=== PATIENT | female | born 2000 | race Native Hawaiian/Other Pacific Islander ===

== ENCOUNTER 2020-08-26 16:48 | Emergency (ER) | payer OTHER, SELFPAY ==
[2020-08-26 17:04] VITALS: BP 115/78; PULSE 90; RESP 18; TEMP 36.7
[2020-08-26 17:17] VITALS: BP 140/78; PULSE 102; RESP 18; TEMP 36.8; O2SAT 100; BMI 27.1
--- NOTE | 2020-08-26 17:46 | ED.URI ---
HPI - URI/Sore Throat General Chief Complaint: Upper Respiratory Symptoms <QI Akins - Last Filed: 08/26/20 20:15> Stated Complaint: COVID SYMPTOMS <QI Akins - Last Filed: 08/26/20 20:15> Time Seen by Provider: 08/26/20 17:45 <QI Akins - Last Filed: 08/26/20 20:15> Source: patient <QI Akins Last Filed: 08/26/20 20:15> Mode of arrival: ambulatory <QI Akins Last Filed: 08/26/20 20:15> Limitations: no limitations <QI Akins Last Filed: 08/26/20 20:15> History of Present Illness HPI Narrative: 20 yo female presenting with mild sore throat, congestion, runny nose. She was recently treated for Strep throat and throat is feeling better. She had recent exposure to a co-worker who was exposed to a person positive for COVID. She was referred to ER for evaluation. <QI Akins - Last Filed: 08/26/20 20:15> MD elicited complaint: cough, sore throat, rhinorrhea and nasal congestion <QI Akins Last Filed: 08/26/20 20:15> Onset (ago): day(s) <QI Akins - Last Filed: 08/26/20 20:15> Consistency: intermittent <QI Akins Last Filed: 08/26/20 20:15> Severity: mild <QI Akins Last Filed: 08/26/20 20:15> Description of mucous: clear and watery <QI Akins Last Filed: 08/26/20 20:15> Able to tolerate fluids by mouth: Yes <QI Akins Last Filed: 08/26/20 20:15> Exacerbating factors: nothing <QI Akins Last Filed: 08/26/20 20:15> Relieving factors: OTC cold medicine <QI Akins Last Filed: 08/26/20 20:15> Context: sick contacts <QI Akins Last Filed: 08/26/20 20:15> Associated symptoms: denies other symptoms <QI Akins Last Filed: 08/26/20 20:15> Treatments prior to arrival: none <QI Akins Last Filed: 08/26/20 20:15> Related Data Home Medications: Previous Rx's Medication Instructions Recorded amoxicillin-pot clavulanate 1 tab PO Q12H #14 tab NS 08/26/20 [Augmentin XR] <QI Akins Last Filed: 08/26/20 20:15> Allergies/Adverse Reactions: Allergies Allergy/AdvReac Type Severity Reaction Status Date / Time pineapple [PINEAPPLE] Allergy Unknown TONGUE/THROAT Unverified 08/17/20 08:23 SWELLING No Known Allergies Allergy Unverified 08/11/20 17:05 [No Known Allergies*] Pinapples Allergy Unknown Uncoded 07/01/20 00:00 <QI Akins Last Filed: 08/26/20 20:15> Review of Systems Review of Systems: Constitutional: No Fever, No Chills ENT/Mouth: No sore throat, No Rhinorrhea, No Swallowing Difficulty Eyes: No Eye Pain, No Swelling, No Redness Cardiovascular: No Chest Pain or SOB, No Orthopnea or Edema Respiratory: No Cough, No Sputum, No Wheezing or dyspnea Gastrointestinal: No Nausea, No Vomiting, No Diarrhea, No abdominal Pain, No Hematochezia, No Melena Genitourinary: No Dysuria, No Urinary Frequency, No Hematuria Musculoskeletal: No joint pain, No Myalgias Skin: No Skin Lesions, No rash Neuro: No Weakness, No Numbness, No Dizziness, No Headache Psych: No Anxiety/Panic, No Depression Heme/Lymph: No Bruising, No Lymphadenopathy Endocrine: No Polyuria, No Polydipsia All other 10 point ROS are negative. <QI Akins Last Filed: 08/26/20 20:15> PMF Past Medical History Attestation statement: The following information was validated with the patient. <QI Akins Last Filed: 08/26/20 20:15> Medical History: Medical History (Updated 08/27/20 @ 00:01 by Background Daspenser) No known health problems <QI Akins - Last Filed: 08/26/20 20:15> Social History Social History: Social History Smoked in Last 30 Days: No Use of substances other than those prescribed or required for medical reasons: No Advance Directives: No Advance Directives Information Provided: No <QI Akins - Last Filed: 08/26/20 20:15> Physical Exam Vital Signs and I&O and Narrative: Vital Signs and I&O: Vital Signs Temp 98.3 F 08/26/20 17:17 Pulse 102 H 08/26/20 17:17 Resp 18 08/26/20 17:17 BP 140/78 H 08/26/20 17:17 Pulse Ox 100 08/26/20 17:17 Intake & Output 08/26/20 08/26/20 08/27/20 06:59 18:59 06:59 Weight 71.668 kg Body Mass Index 27.1 Appearance: Alert. Oriented X3. No acute distress. Eyes: Pupils equal, round and reactive to light. ENT: bilateral tonsil swelling with exudates, no signs of abscess. handling secretions normally, normal voice Neck: Normal inspection. Neck supple. CVS: Normal heart rate and rhythm. Pulses normal. Respiratory: No respiratory distress. Breath sounds normal. Abdomen: Soft and nontender. Skin: Skin warm and dry. Normal skin color. Normal skin turgor. Extremities: No lower extremity edema. No lower extremity edema. Neuro: Oriented X 3. No motor deficit. No sensory deficit. <QI Akins - Last Filed: 08/26/20 20:15> Vital Signs and I&O: Vital Signs Temp 98.3 F 08/26/20 17:17 Pulse 102 H 08/26/20 17:17 Resp 18 08/26/20 17:17 BP 140/78 H 08/26/20 17:17 Pulse Ox 100 08/26/20 17:17 Intake & Output 08/26/20 08/26/20 08/27/20 06:59 18:59 06:59 Weight 71.668 kg Body Mass Index 27.1 <Christiano Carrillo DO - Last Filed: 08/27/20 02:23> Course Course Hospital Course: will COVID and strep test. patient appears well. non-toxic. stable for d/c. will continue abx for strep pharyngitis given exam findings <QI Akins - Last Filed: 08/26/20 20:15> MDM - URI/Sore Throat Differential Diagnosis Differential diagnosis: Likely upper respiratory infection, sinusitis, viral infection, bronchitis, influenza and pharyngitis <QI Akins - Last Filed: 08/26/20 20:15> Medical Records Attestation: I reviewed the patient's medical records. <QI Akins - Last Filed: 08/26/20 20:15> Discharge Plan Discharge Clinical Impression: Pharyngitis, Upper respiratory infection <QI Akins Last Filed: 08/26/20 20:15> Patient Disposition: Home, Self-Care <QI Akins - Last Filed: 08/26/20 20:15> Instructions: Pharyngitis (ED) <QI Akins Last Filed: 08/26/20 20:15> Additional Instructions: You were tested for COVID-19 today. We will call you with the results in 2-4 days. <QI Akins - Last Filed: 08/26/20 20:15> Prescriptions: New amoxicillin-pot clavulanate [Augmentin XR] 1,000-62.5 mg tablet extended release 12 hr 1 tab PO Q12H Qty: 14 RF: 0 <QI Akins Last Filed: 08/26/20 20:15> Stand Alone Forms: Work/School Release <QI Akins - Last Filed: 08/26/20 20:15> Interventions: ED Discharge Assessment Last Done: 08/26/20 18:28 <QI Akins Last Filed: 08/26/20 20:15> Discharge Date/Time: 08/26/20 18:31 <QI Akins Last Filed: 08/26/20 20:15>
== END 2020-08-26 18:31 | disposition home or self-care (01) ==
DX: J06.9 Acute upper respiratory infection, unspecified (principal); Z20.828 Contact with and (suspected) exposure to other viral communicable diseases
CPT/HCPCS: 36415; 87071; 87635; 99283; 99284

== ENCOUNTER 2020-08-30 06:55 | Outpatient (REF) | payer OTHER, SELFPAY ==
[2020-08-30 08:10] LABS: COVID-19 Test Negative (Negative)
== END 2020-08-30 06:56 | disposition home or self-care (01) ==
LOC: HO.LAB 06:55
PROVIDERS: Visit Provider Internal Medicine
DX: Z20.828 Contact with and (suspected) exposure to other viral communicable diseases (principal)
CPT/HCPCS: 36415; 87635

== ENCOUNTER 2020-12-15 08:33 | Outpatient (REF) | payer OTHER, SELFPAY | END 2020-12-15 08:34 | disposition home or self-care (01) | LOC: HO.LAB 08:33 | PROVIDERS: Visit Provider Internal Medicine | DX: Z20.822 Contact with and (suspected) exposure to COVID-19 (principal) | CPT/HCPCS: 36415; C9803; U0003 ==

== ENCOUNTER 2021-01-19 09:31 | Outpatient (REF) | payer OTHER, SELFPAY | END 2021-01-19 09:32 | disposition home or self-care (01) | LOC: HO.LAB 09:31 | PROVIDERS: Visit Provider Internal Medicine | DX: Z20.822 Contact with and (suspected) exposure to COVID-19 (principal) | CPT/HCPCS: 36415; C9803; U0003; U0005 ==

== ENCOUNTER 2025-01-19 07:45 | Emergency (ER) | payer OTHER, SELFPAY ==
--- NOTE | ~2025-01-19 | CT_ITS ---
EXAMINATION: CT ABDOMEN AND PELVIS WITH CONTRAST CLINICAL INFORMATION: Lower abdominal pain. COMPARISON: CT dated July 09, 2020 TECHNIQUE: Multidetector volumetric images were obtained from the superior aspect of the liver through the pubic symphysis following administration 85 mL of Omnipaque 350 intravenous contrast. Sagittal and coronal reformatted images were obtained on the technologist's workstation. Oral contrast: No This CT examination was performed using dose optimization techniques as appropriate, variously including the following: *Automated exposure control *Adjustment of mA and/or kV according to patient size (this includes techniques or standardized protocols for targeted exams where dose is matched to indication/reason for exam; i.e. extremities or head) *Use of iterative reconstruction technique. DLP: 391 mGy centimeter. FINDINGS: LUNG BASES: No acute airspace disease or discrete pulmonary nodules. LIVER, GALLBLADDER, AND BILIARY TREE: Liver measures 19 cm. There is a trace of edema in the portal triad. Portal veins and hepatic veins are patent. Intrahepatic portion of the IVC is patent. No pericholecystic fluid collection or gallbladder wall thickening. Common bile duct measures 4 mm. PANCREAS: No focal mass. No peripancreatic fluid collection. No main pancreatic ductal dilatation. SPLEEN: 12 cm. ADRENAL GLANDS: No nodular lesions. KIDNEYS AND URETERS: No hydronephrosis. No gross renal mass. Normal enhancement pattern of the parenchyma. BLADDER: Fluid-filled. GASTROINTESTINAL TRACT: Abundant stool large intestine. Collapsed appearance of the rectosigmoid colon. No intestinal obstruction pattern. Appendix is normal. No pneumatosis intestinalis. No ascites. No pneumoperitoneum. No peripheral enhancing fluid collections in the peritoneal cavity. ABDOMINAL WALL: No gross umbilical hernia. LYMPH NODES: Nonspecific prominent mesenteric lymph nodes. VASCULAR: No aneurysm or dissection, abdominal aorta. PELVIC VISCERA: T-shaped contraceptive device within the uterine cavity. OSSEOUS STRUCTURES: No acute fracture or listhesis. No lytic or blastic lesions. CT/CT abdomen pelvis w IV con IMPRESSION: Hepatosplenomegaly. A lymphoproliferative disorder cannot be excluded. Fleischner guidelines were followed. Electronically signed by: Alexis Krishnamurthy MD 01/19/2025 09:51 AM [facility]
[2025-01-19 08:04] VITALS: BP 131/76; PULSE 88; RESP 18; TEMP 36.6; O2SAT 100; BMI 22.3
--- NOTE | 2025-01-19 08:28 | ED.ABDPAIN ---
HPI - Abdominal Pain General Chief Complaint: Abdominal Pain Stated Complaint: abd pain, blood in stool Time Seen by Provider: 01/19/25 08:14 Source: patient Mode of arrival: ambulatory Limitations: no limitations History of Present Illness HPI narrative: THIS IS A 24 YEARS OLD THE PATIENT PRESENTED TO THE EMERGENCY DEPARTMENT WITH A CHIEF COMPLAINT OF LOWER ABDOMINAL PAIN PAIN HE HAS BEEN ONGOING FOR ABOUT 4 DAYS LOCALIZED IN THE LOWER ABDOMEN MORE IN THE RIGHT SIDE SHE HAS ALSO DIARRHEA NAUSEA VOMITING MD elicited complaint: abdominal pain Pertinent past history: none Onset (ago): day(s) (4) Pain Consistency: constant Location: RLQ and LLQ Severity: moderate Quality: cramping Radiation: none Migration to: no migration Exacerbating factors: nothing Relieving factors: nothing Related Data Previous Rx's ?Medication ?Instructions ?Recorded Augmentin XR 1,000 mg-62.5 mg 1 tab PO Q12H #14 tabs 08/26/20 tablet,extended release (amoxicillin-pot clavulanate) oxycodone 5 mg tablet 5 mg PO Q6H PRN pain #15 tabs 01/19/25 Allergies Allergy/AdvReac Type Severity Reaction Status Date / Time pineapple [PINEAPPLE] Allergy Unknown TONGUE/THROAT Verified 01/19/25 08:07 SWELLING No Known Allergies Allergy Verified 01/19/25 08:07 [No Known Allergies*] Pinapples Allergy Unknown Swelling Uncoded 01/19/25 08:07 Review of Systems Eyes: Reports no additional eye complaints Cardiovascular: Reports no additional cardiovascular complaints Gastrointestinal: Reports no additional gastrointestinal complaints, Reports nausea and Reports vomiting PMFSH Past Medical History PMFSH Narrative: DENIES Medical History No known health problems Social History Social History Alcohol intake: current Alcohol intake frequency: holidays/special occasions only Physical Exam ED Vital Signs: Vital Signs - 24 hr 01/19/25 08:04 01/19/25 09:28 01/19/25 10:00 Temperature 98 F 98.3 F 98.4 F Pulse Rate 88 76 69 Respiratory Rate 18 16 16 Blood Pressure 131/76 102/62 102/61 Pulse Oximetry 100 100 100 Oxygen Delivery Method Room Air Room Air Room Air 01/19/25 10:58 01/19/25 10:59 Temperature 98.4 F 98.4 F Pulse Rate 81 81 Respiratory Rate 16 16 Blood Pressure 98/55 L 98/55 L Pulse Oximetry 100 100 Oxygen Delivery Method Room Air Room Air BMI result Body Mass Index 22.3 NO ACUTE DISTRESS LOOKS WELL Const General: cooperative Nutritional Appearance: well nourished Orientation/consciousness: patient oriented x3 HENMT Head: Yes normal to inspection Mouth: Normal oral and palatal mucosa present Neck Neck: Yes normal visual inspection Chest Chest palpation & inspection: normal inspection of the chest Resp Effort & Inspection: normal respiratory effort Auscultation: clear to auscultation bilaterally Cardio Jugular venous distension: no JVD Rate: regular rate Rhythm: regular rhythm GI Inspection: Yes normal to inspection Palpation (GI): Soft to palpation, Tenderness to palpation present (GI) in the RLQ and in the LUQ and no guarding Skin General skin exam: no rashes or lesions noted Neuro General: patient oriented x3 Course Reevaluation(s) Reevaluation #1: DOING BETTER LABS WITHIN NORMAL LIMITS, CT NO BOWEL PATHOLOGY, HEPATOSPLENOMEGALY, UA NOTED BY SHE HAS EPITHELIAL CELLS AND NO SYMPTOMS OF URINARY TRACT INFECTION , WE WILL WAIT FOR CULTURES Time: 10:29 Medical Decision Making Medical Decision Making MDM Narrative: PATIENT IS HERE WITH A LOWER ABDOMINAL PAIN WE WILL OBTAIN LABS IMAGING AND REASSESS Differential Diagnosis Differential Diagnoses: The differential diagnosis associated with the presentation includes Admission/Observation Consideration of admission/observation: Escalation of care including admission/observation considered Lab Data [facility] Lab Attestation statement: I reviewed the patient's lab results. 01/19/25 08:28 01/19/25 08:28 Labs: Lab Results 01/19/25 01/19/25 01/19/25 Range/Units 08:28 08:28 08:28 WBC 7.7 (4.8-10.8) X10*3/uL RBC 4.71 (4.20-5.50) X10*6/uL Hgb 12.2 (12.0-16.0) g/dl Hct 38.0 (37.0-47.0) % MCV 80.7 (80.0-98.0) fL MCH 25.9 L (27.0-33.0) pg MCHC 32.1 (31.0-35.0) g/dl RDW 12.7 (11.0-16.0) % Plt Count 150 L (160-400) X10*3/uL MPV 9.8 (9.4-12.3) fL Immature Gran % (Auto) 0.4 (0.0-0.4) % Neut % (Auto) 81.5 H (45-73) % Lymph % (Auto) 10.6 L (20-40) % [place] % (Auto) 5.8 (2-11) % Eos % (Auto) 1.3 (0-4) % Baso % (Auto) 0.4 (0-2) % Lymph # (Auto) 0.8 L (1.2-4.9) X10*3/uL [place] # (Auto) 0.5 (0.1-1.2) X10*3/uL Eos # (Auto) 0.1 (0.0-0.4) X10*3/uL Baso # (Auto) 0.0 (0.0-0.2) X10*3/uL Abs Immat Gran (auto) 0.03 (0.00-0.03) X10*3/uL Absolute Neuts (auto) 6.3 (2.0-8.3) x10*3/uL Absolute Nucleated RBC 0.000 (0.0-0.012) X10*3/uL Nucleated RBC % (auto) 0.0 (0.0-0.2) /100WBC Sodium 141 (135-145) mmol/L Potassium 3.4 (3.3-5.1) mmol/L Chloride 111 H (96-108) mmol/L Carbon Dioxide 24 (22-29) mmol/L Anion Gap 9 L (12-20) BUN 8 L (9-16) mg/dL Creatinine 0.73 (0.5-1.4) mg/dL Estim Creat Clear Calc 100.8 Estimated GFR > 60 Random Glucose 98 (60-115) mg/dL Calcium 9.0 (8.4-10.2) mg/dL Magnesium 1.9 (1.6-2.6) mg/dL Total Bilirubin 1.3 H 1.3 H (0.0-1.0) mg/dL Direct Bilirubin 0.3 (0.0-0.5) mg/dL AST 20 20 (5-31) U/L ALT 15 (0-31) U/L Alkaline Phosphatase (39-117) U/L Total Protein (6.5-8.0) g/dL Albumin (3.5-5.0) g/dL Lipase (8-78) U/L Beta HCG, Quant mIU/mL Urine Color Urine Appearance Urine pH (5.0-9.0) Ur Specific [place] (1.005-1.025) Urine Protein (Neg-Trace) mg/dL Urine Glucose (UA) (Negative) mg/dL Urine Ketones (Negative) mg/dL Urine Blood (Negative) Urine Nitrite (Negative) Ur Leukocyte Esterase (Negative) Urine RBC (0-2) /HPF Urine WBC (0-5) /HPF Ur Squamous Epith Cells (0-2) /HPF Urine Bacteria (None Seen) Hyaline Casts (0-2) /LPF Urine Test (NEGATIVE) 01/19/25 01/19/25 01/19/25 Range/Units 08:28 08:28 08:28 WBC (4.8-10.8) X10*3/uL RBC (4.20-5.50) X10*6/uL Hgb (12.0-16.0) g/dl Hct (37.0-47.0) % MCV (80.0-98.0) fL MCH (27.0-33.0) pg MCHC (31.0-35.0) g/dl RDW (11.0-16.0) % Plt Count (160-400) X10*3/uL MPV (9.4-12.3) fL Immature Gran % (Auto) (0.0-0.4) % Neut % (Auto) (45-73) % Lymph % (Auto) (20-40) % [place] % (Auto) (2-11) % Eos % (Auto) (0-4) % Baso % (Auto) (0-2) % Lymph # (Auto) (1.2-4.9) X10*3/uL [place] # (Auto) (0.1-1.2) X10*3/uL Eos # (Auto) (0.0-0.4) X10*3/uL Baso # (Auto) (0.0-0.2) X10*3/uL Abs Immat Gran (auto) (0.00-0.03) X10*3/uL Absolute Neuts (auto) (2.0-8.3) x10*3/uL Absolute Nucleated RBC (0.0-0.012) X10*3/uL Nucleated RBC % (auto) (0.0-0.2) /100WBC Sodium (135-145) mmol/L Potassium (3.3-5.1) mmol/L Chloride (96-108) mmol/L Carbon Dioxide (22-29) mmol/L Anion Gap (12-20) BUN (9-16) mg/dL Creatinine (0.5-1.4) mg/dL Estim Creat Clear Calc Estimated GFR Random Glucose (60-115) mg/dL Calcium (8.4-10.2) mg/dL Magnesium (1.6-2.6) mg/dL Total Bilirubin (0.0-1.0) mg/dL Direct Bilirubin (0.0-0.5) mg/dL AST (5-31) U/L ALT 18 (0-31) U/L Alkaline Phosphatase 62 61 (39-117) U/L Total Protein 7.3 7.2 (6.5-8.0) g/dL Albumin 4.3 (3.5-5.0) g/dL Lipase (8-78) U/L Beta HCG, Quant mIU/mL Urine Color Urine Appearance Urine pH (5.0-9.0) Ur Specific [place] (1.005-1.025) Urine Protein (Neg-Trace) mg/dL Urine Glucose (UA) (Negative) mg/dL Urine Ketones (Negative) mg/dL Urine Blood (Negative) Urine Nitrite (Negative) Ur Leukocyte Esterase (Negative) Urine RBC (0-2) /HPF Urine WBC (0-5) /HPF Ur Squamous Epith Cells (0-2) /HPF Urine Bacteria (None Seen) Hyaline Casts (0-2) /LPF Urine Test (NEGATIVE) 01/19/25 01/19/25 01/19/25 Range/Units 08:28 09:28 09:29 WBC (4.8-10.8) X10*3/uL RBC (4.20-5.50) X10*6/uL Hgb (12.0-16.0) g/dl Hct (37.0-47.0) % MCV (80.0-98.0) fL MCH (27.0-33.0) pg MCHC (31.0-35.0) g/dl RDW (11.0-16.0) % Plt Count (160-400) X10*3/uL MPV (9.4-12.3) fL Immature Gran % (Auto) (0.0-0.4) % Neut % (Auto) (45-73) % Lymph % (Auto) (20-40) % [place] % (Auto) (2-11) % Eos % (Auto) (0-4) % Baso % (Auto) (0-2) % Lymph # (Auto) (1.2-4.9) X10*3/uL [place] # (Auto) (0.1-1.2) X10*3/uL Eos # (Auto) (0.0-0.4) X10*3/uL Baso # (Auto) (0.0-0.2) X10*3/uL Abs Immat Gran (auto) (0.00-0.03) X10*3/uL Absolute Neuts (auto) (2.0-8.3) x10*3/uL Absolute Nucleated RBC (0.0-0.012) X10*3/uL Nucleated RBC % (auto) (0.0-0.2) /100WBC Sodium (135-145) mmol/L Potassium (3.3-5.1) mmol/L Chloride (96-108) mmol/L Carbon Dioxide (22-29) mmol/L Anion Gap (12-20) BUN (9-16) mg/dL Creatinine (0.5-1.4) mg/dL Estim Creat Clear Calc Estimated GFR Random Glucose (60-115) mg/dL Calcium (8.4-10.2) mg/dL Magnesium (1.6-2.6) mg/dL Total Bilirubin (0.0-1.0) mg/dL Direct Bilirubin (0.0-0.5) mg/dL AST (5-31) U/L ALT (0-31) U/L Alkaline Phosphatase (39-117) U/L Total Protein (6.5-8.0) g/dL Albumin 4.2 (3.5-5.0) g/dL Lipase 10 (8-78) U/L Beta HCG, Quant < 2 mIU/mL Urine Color Yellow Urine Appearance Cloudy Urine pH 5.5 (5.0-9.0) Ur Specific [place] 1.020 (1.005-1.025) Urine Protein Negative (Neg-Trace) mg/dL Urine Glucose (UA) Negative (Negative) mg/dL Urine Ketones Negative (Negative) mg/dL Urine Blood Trace H (Negative) Urine Nitrite Negative (Negative) Ur Leukocyte Esterase Moderate (2+) H (Negative) Urine RBC 0-2 (0-2) /HPF Urine WBC 21-50 H (0-5) /HPF Ur Squamous Epith Cells >20 (0-2) /HPF Urine Bacteria 4+ (None Seen) Hyaline Casts 0-2 (0-2) /LPF Urine Test NEGATIVE (NEGATIVE) Medications Administered Discontinued Medications Generic Name Dose Route Start Last Admin Trade Name Freq PRN Reason Stop Dose Admin Sodium Chloride 1,000 mls @ 999 mls/hr 01/19/25 08:30 01/19/25 09:38 Ns IVCONT 01/19/25 09:30 Infused .Q1H1M KIMBERLI Infusion Iohexol 100 ml 01/19/25 09:20 01/19/25 09:21 Iohexol 350 Mg/Ml 100 Ml Infus..Btl IV 01/19/25 09:21 85 ml ONCE ONE Administration Morphine Sulfate 4 mg 01/19/25 08:27 01/19/25 08:30 Morphine Sulfate 4 Mg/Ml Cartridge IVPUSH 01/19/25 08:28 4 mg ONCE ONE Administration Protocol Ondansetron HCl 4 mg 01/19/25 08:27 01/19/25 08:30 Ondansetron Hcl 4 Mg/2 Ml Vial IVPUSH 01/19/25 08:28 4 mg ONCE ONE Administration Discharge Plan Discharge Clinical Impression: Abdominal pain Qualifiers: Abdominal location: lower abdomen, unspecified Qualified Code(s): R10.30 - Lower abdominal pain, unspecified Patient Disposition: Home, Self-Care Instructions: Abdominal Pain (ED) Additional Instructions: FOLLOW-UP WITH YOUR PRIMARY CARE PHYSICIAN CALL AND MAKE AN APPOINTMENT, YOUR BLOOD WORK WAS NORMAL, YOUR CT SCAN OF THE ABDOMEN AND PELVIS SHOWED NO BOWEL PATHOLOGY NO APPENDICITIS NO DIVERTICULITIS NO BLOCKAGE, RADIOLOGY COMMENT THAT YOU SPLEEN IS MILDLY ENLARGED PLEASE FOLLOW-UP WITH YOUR PRIMARY CARE PHYSICIAN. We sent a prescription for you for pain medicine to [facility] in [facility] Prescriptions: New oxycodone 5 mg tablet 5 mg PO Q6H PRN (Reason: pain) Qty: 15 0RF Rx Instructions: partial filing upon pt request; Partial Fill upon patient request. No Action amoxicillin-pot clavulanate [Augmentin XR] 1,000-62.5 mg tablet extended release 12 hr 1 tab PO Q12H Qty: 14 0RF Referrals: Iris Hughes MD [Primary Care Provider] - 2 days Stand Alone Forms: Work/School Release Interventions: ED Discharge Assessment Last Done: 01/19/25 10:59 Discharge Date/Time: 01/19/25 10:59 Print Language: Yemeni
[2025-01-19] MEDS: Morphine Sulfate 4 MG/ML CARTRIDGE IVPUSH (08:30)
[2025-01-19] MEDS: ondansetron HCL 4 MG/2 ML VIAL IVPUSH (08:30)
[2025-01-19 08:32] LABS: MANUAL DIFF FLAG NO
[2025-01-19 08:33] LABS: Basophils Percent Auto 0.4 % (0-2); Eosinophils Absolute Auto 0.1 X10*3/uL (0.0-0.4); Eosinophils Percent Auto 1.3 % (0-4); Hemoglobin 12.2 g/dl (12.0-16.0); Imm Gran Abs Auto 0.03 X10*3/uL (0.00-0.03); Imm Gran Pct Auto 0.4 % (0.0-0.4); Lymphocytes Absolute Auto 0.8 X10*3/uL (1.2-4.9); Lymphocytes Percent Auto 10.6 % (20-40); Mean Corpuscular HGB Conc 32.1 g/dl (31.0-35.0); Mean Corpuscular Hemoglobin 25.9 pg (27.0-33.0); Mean Corpuscular Volume 80.7 fL (80.0-98.0); Mean Platelet Volume 9.8 fL (9.4-12.3); Monocytes Absolute Auto 0.5 X10*3/uL (0.1-1.2); Monocytes Percent Auto 5.8 % (2-11); Neutrophils Absolute Auto 6.3 x10*3/uL (2.0-8.3); Neutrophils Percent Auto 81.5 % (45-73); Platelet Count 150 X10*3/uL (160-400); Red Blood Count 4.71 X10*6/uL (4.20-5.50); Red Cell Distribution Width 12.7 % (11.0-16.0); White Blood Count 7.7 X10*3/uL (4.8-10.8)
[2025-01-19] MEDS: 0.9 % Sodium Chloride 1,000 ML 999 ML IVCONT (08:33)
--- OUTSIDE RECORDS SUMMARY | 2025-01-19 08:41 | XMS_ITS | Clinical Summary ---
Author Organization [facility] ity Address [address] [place] [address] Care Team Providers Care Digital Assistant Name Role Phone Trice Bradford MD Primary Care Provider [phone] Social History Tobacco Use Types Packs/Day Years Used Date Smoking Tobacco: Never Smokeless Tobacco: Never Alcohol Use Standard Drinks/Week Comments Yes 0 (1 standard drink = 0.6 oz pur e alcohol) Comments Unknown Sex and Gender Information Value Date Recorded Sex Assigned at Not on file Legal Sex Female 1:07 PM EST Gender Identity Not on file Sexual Orientation Not on file Obstetrics History Plan of Treatment Health Maintenance Due Date Last Done Comments HPV Vaccines (1 - 3-dose series) 2013 DTaP,Tdap,and Td Vaccines (1 - Tdap) 2017 Hepatitis B Vaccines (1 of 3 - 19+ 3-dose series) 2017 Cervical Cancer Screening: P ap Smear 2019 COVID-19 Vaccine ( - 2023-2 5 season) 2024 Influenza Vaccine (#1) 2024 HIB Vaccines Aged Out No longer eligi ble based on patient's age to complete this topic Hepatitis A Vaccines Aged Out No long er eligible based on patient's age to complete this topic IPV Vaccines Aged Out No longer eligi ble based on patient's age to complete this topic MMR Vaccines Aged Out No longer eligi ble based on patient's age to complete this topic Meningococcal ACWY Vaccine Aged Out N o longer eligible based on patient's age to complete this topic Meningococcal B Vacine Aged Out No lo nger eligible based on patient's age to complete this topic Pneumococcal Vaccine: Pediat rics (0 to 5 Years) and At-Risk Patients (6 to 64 Years) Aged Out No longer eligible b ased on patient's age to complete this topic RSV Immunization Patients Un alida 20 months Aged Out No longer eligible b ased on patient's age to complete this topic Varicella Vaccines Aged Out No longer eligible based on patient's age to complete this topic Care Teams Digital Assistant Relationship Specialty Start Date End Date Trice Bradford MD [address] [facility] [place] [id number] PCP - General Pediatrics 12/01/17
--- OUTSIDE RECORDS SUMMARY | 2025-01-19 08:41 | XMS_ITS | Clinical Summary ---
Author Organization [facility] Address [address] [place] [address] Care Team Providers Care School Traffic Guard Name Role Phone Trice Bradford MD Primary Care Provider [phone] Allergies No known active allergies Medications Medication Sig Dispensed Refills Start Date End Date Status naproxen (NAPROSYN) 500 MG tablet Take 1 tablet (500 mg total) by mouth 2 (two) times a day with meals. 20 tablet 0 08/28/2018 Active ibuprofen (ADVIL,MOTRIN) 400 MG tablet Take 1 tablet (400 mg total) by mouth every 8 (eight) hours as needed for pain. 30 tablet 0 12/05/2018 Active Social History Tobacco Use Types Packs/Day Years Used Date Smoking Tobacco: Never Smokeless Tobacco: Never Alcohol Use Standard Drinks/Week Comments Yes 0 (1 standard drink = 0.6 oz pur e alcohol) occasionally Sex and Gender Information Value Date Recorded Sex Assigned at Female 12/05/2018 12:53 AM EST Gender Identity Not on file Sexual Orientation Not on file Last Filed Vital Signs Vital Sign Reading Time Taken Comments Blood Pressure 112/71 12/05/2018 3:35 AM EST Pulse 94 12/05/2018 3:35 AM EST Temperature 37.1 ??C (98.8 ??F) 12/05/2018 3:35 AM ES T Respiratory Rate 16 12/05/2018 3:35 AM EST Oxygen Saturation 100% 12/05/2018 3:35 AM EST Inhaled Oxygen Concentration - - Weight 62.6 kg (138 lb) 08/28/2018 4:50 PM EDT Height 162.6 cm (5' 4 ) 08/28/2018 4:50 PM EDT Body Mass Index 23.69 08/28/2018 4:50 PM EDT Plan of Treatment Health Maintenance Due Date Last Done Comments Hepatitis B Vaccines (1 of 3 - 3-dose series) 1998 Hepatitis C Screening 1998 COVID-19 Vaccine (#1) 1998 Depression Screening 2010 Preventative Health Evaluation 01/26/2016 DTap / Tdap / Td (1 - Tdap) 2017 Cervical Cancer Screening (P ap Smear) 2019 Influenza Vaccine (#1) 2024 Pneumococcal Vaccine Aged Out No long er eligible based on patient's age to complete this topic RSV Ped < 20 months Aged Out No longe r eligible based on patient's age to complete this topic Care Teams School Traffic Guard Relationship Specialty Start Date End Date Trice Bradford MD [address] [place] [address] [place] [id number] PCP - General Pediatrics 12/01/17
--- OUTSIDE RECORDS SUMMARY | 2025-01-19 08:41 | XMS_ITS | Clinical Summary ---
Author Organization [facility] Address [address] [place] [address] Care Team Providers Care Public Relations Professional Name Role Phone Pcp, No Primary Care Provider Unavailabl e Allergies No known active allergies Medications No known medications Social History Tobacco Use Types Packs/Day Years Used Date Smoking Tobacco: Never Smokeless Tobacco: Never Sex and Gender Information Value Date Recorded Sex Assigned at Not on file Gender Identity Not on file Sexual Orientation Not on file Last Filed Vital Signs Vital Sign Reading Time Taken Comments Blood Pressure 109/74 08/06/2018 3:38 PM EDT Pulse 90 08/06/2018 3:38 PM EDT Temperature 37.4 ??C (99.3 ??F) 08/06/2018 3:38 PM ED T Respiratory Rate - - Oxygen Saturation 100% 08/06/2018 3:38 PM EDT Inhaled Oxygen Concentration - - Weight - - Height - - Body Mass Index - - Plan of Treatment Health Maintenance Due Date Last Done Comments Hepatitis C Virus Screening 1998 HIV Screening 2011 HPV Vaccines (1 - 3-dose series) 2013 DTaP/Tdap/Td Vaccines (1 - Tdap) 2017 Hepatitis B Vaccines (1 of 3 - 19+ 3-dose series) 2017 Pap Smear (Ages 21-65) 2019 Influenza Vaccine 06/25/2024 COVID-19 Vaccine ( - 2023-2 5 season) 2024 Pneumococcal Vaccine: Pediat saloni (0-5 Years) and At-Risk Patients (6 to 49 Years) Aged Out No longer eligible b ased on patient's age to complete this topic Care Teams Public Relations Professional Relationship Specialty Start Date End Date Pcp, No PCP - General General Medicine 08/06/18
[2025-01-19 08:49] LABS: Alanine Aminotransferase 15 U/L (0-31); Albumin Level 4.3 g/dL (3.5-5.0); Alkaline Phosphatase 62 U/L (39-117); Anion Gap 9 (12-20); Aspartate Amino Transferase 20 U/L (5-31); Bilirubin Total 1.3 mg/dL (0.0-1.0); Blood Urea Nitrogen 8 mg/dL (9-16); Carbon Dioxide 24 mmol/L (22-29); Chloride 111 mmol/L (96-108); Creatinine Clr Calc Pharmacy 100.8; Estimated Glomerular Filt Rate > 60; Glucose Random 98 mg/dL (60-115); Lipase 10 U/L (8-78); Magnesium 1.9 mg/dL (1.6-2.6); Potassium 3.4 mmol/L (3.3-5.1); Sodium 141 mmol/L (135-145); Total Protein 7.3 g/dL (6.5-8.0)
[2025-01-19 08:51] LABS: Alanine Aminotransferase 18 U/L (0-31); Albumin Level 4.2 g/dL (3.5-5.0); Alkaline Phosphatase 61 U/L (39-117); Aspartate Amino Transferase 20 U/L (5-31); Bilirubin Direct 0.3 mg/dL (0.0-0.5); Bilirubin Total 1.3 mg/dL (0.0-1.0); Total Protein 7.2 g/dL (6.5-8.0)
[2025-01-19 09:04] LABS: HCG Quantitative < 2 mIU/mL
[2025-01-19] MEDS: iohexoL 350 MG/ML 100 ML INFUS..BTL IV (09:21)
[2025-01-19 09:28] VITALS: BP 102/62; PULSE 76; RESP 16; TEMP 36.8; O2SAT 100
[2025-01-19 09:36] LABS: Appearance Urine Cloudy; Color Urine Yellow; Glucose Urine UA Negative (Negative); Leukocyte Esterase Urine Moderate (2+) (Negative); Nitrite Urine Negative (Negative); PH 5.5 (5.0-9.0); UMIC TRIGGER UACC YES; Urine Blood Trace (Negative); Urine Ketones Negative (Negative); Urine Protein Negative (Neg-Trace)
[2025-01-19 09:38] LABS: UPreg QC Valid YES; Urine Pregnancy NEGATIVE (NEGATIVE)
[2025-01-19 09:39] LABS: Bacteria Urine 4+ (None Seen); Hyaline Casts Urine 0-2 /LPF (0-2); RBC Urine 0-2 /HPF (0-2); Squamous Epithelial Cell Urine >20 /HPF (0-2); UACC Culture Trigger YES; WBC Urine 21-50 /HPF (0-5)
--- NOTE | 2025-01-19 09:45 | PC.NURSE ---
a&ox4. vss and up to date. pt presents to the ED c/o generalized abd pain w/ associated nausea and vomiting and 1 episode of dark red blood in diarrhea x saturday. pt reports eating aggravates sx where she then has severe pain right afterwords. denies urinary sx/fever/chills. reports recent abx use twice over the past few weeks d/t chlamydia and BV. 20gIV placed in the left AC - labs obtained/sent to lab. IVF/medication administered per provider order. effectiveness pending. urine specimen obtained/also sent to the lab. pt returned from CT. results pending at this time. pt on RA w/o difficulty. no sob/wob noted. respirations even/unlabored. plan of care ongoing. call brambila placed within reach.
[2025-01-19 10:00] VITALS: BP 102/61; PULSE 69; RESP 16; TEMP 36.9; O2SAT 100
[2025-01-19 10:58] VITALS: BP 98/55; PULSE 81; RESP 16; TEMP 36.9; O2SAT 100
[2025-01-19 10:59] VITALS: BP 98/55; PULSE 81; RESP 16; TEMP 36.9; O2SAT 100
== END 2025-01-19 10:59 | disposition home or self-care (01) ==
PROVIDERS: Emergency Provider Emergency Medicine; PCP Family Medicine
DX: R10.30 Lower abdominal pain, unspecified (principal); R10.32 Left lower quadrant pain; R11.2 Nausea with vomiting, unspecified; R19.7 Diarrhea, unspecified; Z79.899 Other long term (current) drug therapy
CPT/HCPCS: 36415; 74177; 80053; 80076; 81001; 81025; 82248; 83690; 83735; 84702; 85025; 87086; 96360; 96361; 96374; 96375; 99284; 99285; J2270; J2405; Q9967

== ENCOUNTER → 2025-01-19 08:26 | Outpatient (BNV) | payer OTHER, SELFPAY | PROVIDERS: Emergency Provider Emergency Medicine; PCP Family Medicine; Visit Provider Radiology Diagnostic Radiology | DX: R10.30 Lower abdominal pain, unspecified (principal) | CPT/HCPCS: 74177 ==